=== PATIENT | female | born 1955 | race Caucasian/White ===

== ENCOUNTER 2024-01-30 07:15 | Day surgery (SDC) | payer MEDICARE, OTHER ==
[~2024-01-30 07:15] MED LIST: Ketorolac 30 MG/ML SDV ONE; Lidocaine 1% 4 ML ONE; Midazolam 1 MG/ML 2 ML SDV ONE; Ondansetron 4 MG/2 ML SDV ONE; Propofol 200 MG/20 ML SDV ONE; Rocuronium 50 MG/5 ML Vial ONE; Sodium Chloride 0.9% 10 ML Syringe FLUSH PRN; Sodium Chloride 0.9% 10 ML Syringe FLUSH SCH; ceFAZolin 2 GM Vial ONE; fentaNYL 100 MCG/2 ML SDV ONE
[2024-01-30] MEDS ORDERED: EPINEPHrine 1 MG/ML SDV ONE (07:21)
[2024-01-30] MEDS ORDERED: dexmedeTOMIDine HCl 200 MCG/2 ML SDV ONE (07:21)
[2024-01-30] MEDS ORDERED: Ropivacaine 0.5% 5 MG/ML 30 ML SDV ONE (07:21)
[2024-01-30] MEDS: Lactated Ringers 1,000 ML IV SCH (08:03)
[2024-01-30 08:20] LABS: PROTHROMBIN TIME 10.7 SECONDS (9.7-12.0)
[2024-01-30 08:21] LABS: PTT,PARTIAL THROMBOPLSTIN TIME 26.9 SECONDS (21.7-31.4)
[2024-01-30] MEDS: Acetaminophen 325 MG Tab PO SCH (08:52)
[2024-01-30] MEDS: Pregabalin 25 MG Cap PO SCH (08:53)
[2024-01-30] MEDS: oxyCODONE ER 10 MG TAB.ER PO SCH (08:53)
[2024-01-30] MEDS ORDERED: Dexamethasone 4 MG/ML 5 ML MDV ONE (09:33)
[2024-01-30] MEDS ORDERED: Lactated Ringers 1,000 ML ONE (09:33)
[2024-01-30] MEDS ORDERED: Phenylephrine 1% 10 MG/ML SDV ONE (09:45)
[2024-01-30] MEDS: Tranexamic Acid 1,000 MG/10 ML Vial ONE (10:23)
[2024-01-30] MEDS: Vancomycin 1 GM SDV ONE (10:23)
[2024-01-30] MEDS ORDERED: Neostigmine Methylsulfate 10 MG/10 ML MDV ONE (10:41)
[2024-01-30] MEDS ORDERED: HYDROmorphone 0.5 MG/0.5 ML Syringe IVPUSH PRN (11:03)
[2024-01-30] MEDS ORDERED: fentaNYL 100 MCG/2 ML SDV IVPUSH PRN (11:03)
[2024-01-30] MEDS ORDERED: Ondansetron 4 MG/2 ML SDV IVPUSH PRN (11:03)
[2024-01-30] MEDS: oxyCODONE 5 MG Tab PO PRN (14:59)
== END 2024-01-30 15:15 | disposition home or self-care (01) ==
LOC: JD.SDS 07:15
PROVIDERS: ATTEND Orthopaedic Surgery
DX: M19.012 Primary osteoarthritis, left shoulder (principal); E03.9 Hypothyroidism, unspecified; E78.49 Other hyperlipidemia; L57.0 Actinic keratosis; Z79.82 Long term (current) use of aspirin; Z79.899 Other long term (current) drug therapy; Z88.0 Allergy status to penicillin; Z88.2 Allergy status to sulfonamides
CPT/HCPCS: 01638; 36415; 64415; 76000; 76000-26; 85610; 85730; 97161-GP; 97530-GP; A9270-GY; C1713; C1769; C1776; J0171; J0690; J1100; J1596; J1885; J2250; J2371; J2405; J2704; J2710; J2795; J3010; J3370; J3490; J7120

== ENCOUNTER 2024-09-14 16:20 | Emergency (ER) | payer MEDICARE, OTHER ==
[2024-09-14 17:09] LABS: BASOPHILS PERCENT AUTO 0.5 % (0.0-1.0); EOSINOPHILS PERCENT AUTO 0.3 % (0.0-6.0); HEMATOCRIT 39.6 % (37.0-47.0); HEMOGLOBIN 13.4 gm/dl (12.0-16.0); IMMATURE GRAN ABSOLUTE AUTO 0.02 K/mm3 (0.00-0.05); IMMATURE GRAN PERCENT AUTO 0.3 % (0.0-0.4); LYMPHOCYTES ABSOLUTE AUTO 0.9 K/mm3 (1.0-4.8); LYMPHOCYTES PERCENT AUTO 14.5 % (24.0-44.0); MEAN CORPUSCULAR HEMOGLOBIN 31.3 pg (28.0-32.0); MEAN CORPUSCULAR HGB CONC 33.8 g/dl (32.0-36.0); MEAN CORPUSCULAR VOLUME 92.5 fl (83.0-99.0); MEAN PLATELET VOLUME 10.1 fl (9.4-12.3); MONOCYTES ABSOLUTE AUTO 0.5 K/mm3 (0.0-0.8); NEUTROPHILS ABSOLUTE AUTO 4.8 K/mm3 (1.8-7.7); NEUTROPHILS PERCENT AUTO 76.4 % (41.0-71.0); PLATELET COUNT,PLT 169 K/mm3 (150-400); RED BLOOD CELL COUNT 4.28 M/mm3 (4.10-5.30); WHITE BLOOD CELL COUNT,WBC 6.26 K/mm3 (3.9-11.3)
[2024-09-14 17:33] LABS: LACTIC ACID 1.4 mmol/L (0.4-2.0)
[2024-09-14 17:38] LABS: C-REACTIVE PROTEIN 0.44 mg/dL (<0.30); MAGNESIUM 1.7 mg/dL (1.8-2.4); TSH 4.082 uIU/mL (0.358-3.74)
[2024-09-14] MEDS: Dextrose 5%-0.9% NaCl with KCl 1,000 ML IV SCH (17:44)
[2024-09-14] MEDS: LORazepam 2 MG/ML SDV IVPUSH ONE (17:44)
[2024-09-14] MEDS: Metoclopramide 10 MG/2 ML SDV IVPUSH ONE (17:44)
[2024-09-14 18:28] LABS: A/G RATIO 0.9 (1-2); ALBUMIN 3.2 g/dl (3.4-5.0); ANION GAP 16.1 (5-15); BILIRUBIN TOTAL 0.4 mg/dL (0.2-1.0); CALCIUM 8.9 mg/dL (8.5-10.1); EST CRCL DRUG DOSING (CG) 47.78 mL/min; PROTEIN TOTAL,TP 6.9 g/dl (6.4-8.2)
[2024-09-14 18:34] LABS: POTASSIUM,K 4.1 mEq/L (3.5-5.1)
== END 2024-09-14 21:17 | disposition home or self-care (01) ==
LOC: JD.ED 16:20
DX: H81.12 Benign paroxysmal vertigo, left ear (principal); E03.9 Hypothyroidism, unspecified; Z88.0 Allergy status to penicillin; Z88.2 Allergy status to sulfonamides; Z79.899 Other long term (current) drug therapy; Z75.8 Other problems related to medical facilities and other health care
CPT/HCPCS: 36415; 80053; 83605; 83690; 83735; 84443; 85025; 86140; 87428; 93005; 96365; 96375; 99284; J2060; J2765; J3480; 93010